=== PATIENT | female | born 1990 | race Caucasian/White ===

== ENCOUNTER → 2018-03-29 17:45 | Observation (INO) ==
[2018-03-29 16:39] LABS: Basophils % 0.2 %; Eosinophils # 0.1 K/mcL (0.0-0.6); Eosinophils % 0.6 %; Hematocrit 37.1 % (35.3-44.9); Hemoglobin 12.6 g/dL (11.5-15.4); Immature Granulocytes % 0.6 % (0-4); Lymphocytes # 2.1 K/mcL (0.6-4.6); Lymphocytes % 15.1 %; Mean Corpuscular Volume 91.4 fL (83.0-100.0); Mean Platelet Volume 12.4 fL (9.4-12.4); Monocytes % 7.3 %; Neutrophils # 10.8 K/mcL (1.6-8.9); Platelet Count 179 K/mcL (140-400); Red Blood Count 4.06 M/mcL (3.82-4.97); Segmented Neutrophils % 76.2 %
[2018-03-29 16:58] LABS: Alanine Aminotransferase 18 Units/L (7-52); Aspartate Amino Transferase 16 Units/L (13-39); BUN/Creatinine Ratio 14 (6-26); Blood Urea Nitrogen 11 mg/dL (6-20); Lactate Dehydrogenase 129 Units/L (140-271); Uric Acid 4.3 mg/dL (2.3-7.6); eGFR For Non-African Americans > 60 (> 60)
[2018-03-29 17:03] LABS: Protein/Creatinine Ratio,Urine 0.28 mg/mg (0.00-0.20)
[2018-03-29 17:03] LABS: Amphetamine Screen,Urine Negative ng/mL (Cutoff=1000); Barbiturate Screen,Urine Negative ng/mL (Cutoff=200); Benzodiazepines Screen,Urine Negative ng/mL (Cutoff=200); Cannabinoid Screen,Urine Negative ng/mL (Cutoff = 50); Cocaine Screen,Urine Negative ng/mL (Cutoff= 300); Opiate Screen,Urine Negative ng/mL (Cutoff=300); Phencyclidine Screen,Urine Negative ng/mL (Cutoff=25)
--- NOTE | 2018-03-29 17:27 | OB/GYN Progress Note ---
Date of Encounter: 03/29/18 Time of Encounter: 17:25 - Assessment and Plan (1) 36 weeks gestation of Current Visit: Yes Status: Acute NST Reactive, baseline HR 135 bpm. Discharge home with precautions. (2) Headache Current Visit: Yes Status: Acute Pt declines treatment for MOCK. PIH/PreE precautions given. supply technician present in room with patient. Qualifiers: Qualified Code(s): G44.89 - Other headache syndrome Subjective - Subjective Principal diagnosis: Headache Interval history: Pt presented to triage with complaint of MOKC that began "at the beginning of the week", she has not taken anything for pain relief and declines and medication to treat the MOCK. She reports her BPs have been on the high side of normal. She denies abdominal pain, contractions, LOF or VB. Reports good FM. Antepartum ROS: movement normal, no loss of fluid, no vaginal bleeding, no contractions Objective - Exam FHR: category 1 Auscultation: bilateral: normal Abdomen: Present: soft, gravid. Absent: tenderness - Labs Labs: Abnormal lab results WBC 14.2 K/mcL (4.3-11.1) H 03/29/18 16:10 Neutrophils # 10.8 K/mcL (1.6-8.9) H 03/29/18 16:10 Lactate Dehydrogenase 129 Units/L (140-271) L 03/29/18 16:10 Protein/Creatinin Ratio 0.28 mg/mg (0.00-0.20) H 03/29/18 16:10 Urine Total Protein 20 mg/dL (1-14) H 03/29/18 16:10
== END | disposition home or self-care (01) ==
LOC: 1NENULAB
PROVIDERS: ADMIT Registered Nurse; ATTEND Registered Nurse